=== PATIENT | male | born 1940 | race Caucasian/White ===

== ENCOUNTER 2021-11-24 00:41 | Emergency (ER) | payer MEDICARE, OTHER ==
[~2021-11-24] VITALS: Ht 162.6 cm; Wt 67.0 kg
[~2021-11-24 00:41] MED LIST: FLO0.4C PO
[2021-11-24] MEDS ORDERED: HYDR-3972 PO (03:00)
[2021-11-24] MEDS: HYDROcodone/acetaminophen 10/325mg tab PO ONE (03:30)
[2021-11-24 03:40] VITALS: BP 160/86
== END 2021-11-24 03:41 | disposition home or self-care (01) ==
LOC: ER 00:42
DX: S22.32XA Fracture of one rib, left side, initial encounter for closed fracture (principal); R07.81 Pleurodynia; R05.9 Cough, unspecified; Z98.890 Other specified postprocedural states; Z79.899 Other long term (current) drug therapy; X58.XXXA Exposure to other specified factors, initial encounter; Y93.89 Activity, other specified; Y92.89 Other specified places as the place of occurrence of the external cause; Y99.8 Other external cause status
CPT/HCPCS: 99283

== ENCOUNTER 2023-02-22 17:32 | Emergency (ER) | payer MEDICARE, OTHER ==
[~2023-02-22] VITALS: Ht 162.6 cm; Wt 67.3 kg
[2023-02-22 17:35] VITALS: TEMP 98.6
[2023-02-22 20:01] VITALS: BP 204/94; PULSE 77; RESP 12; O2SAT 98
[2023-02-22] MEDS ORDERED: HYDROcodone/acetaminophen 5mg/325mg tablet PO ONE (21:45)
[2023-02-22] MEDS ORDERED: HYDR-3965 PO (22:52)
== END 2023-02-22 23:24 | disposition home or self-care (01) ==
LOC: ER 17:33
DX: S62.300A Unspecified fracture of second metacarpal bone, right hand, initial encounter for closed fracture (principal); S30.0XXA Contusion of lower back and pelvis, initial encounter; Z79.899 Other long term (current) drug therapy; W19.XXXA Unspecified fall, initial encounter; Y93.89 Activity, other specified; Y92.89 Other specified places as the place of occurrence of the external cause; Y99.8 Other external cause status
CPT/HCPCS: 29125; 72220; 73130; 99284

== ENCOUNTER 2024-05-30 03:20 | Emergency (ER) | payer MEDICARE, OTHER ==
[~2024-05-30] VITALS: Ht 167.6 cm; Wt 63.6 kg
[2024-05-30 03:26] VITALS: TEMP 98.4
[2024-05-30] MEDS: ketorolac trometh 30MG/ML vial 30 MG/ML VIAL IM ONE (06:00)
[2024-05-30 06:52] VITALS: BP 155/61; PULSE 85; RESP 16; O2SAT 96
== END 2024-05-30 07:03 | disposition home or self-care (01) ==
LOC: ER 03:20
DX: M62.830 Muscle spasm of back (principal); M19.90 Unspecified osteoarthritis, unspecified site; Z98.890 Other specified postprocedural states
CPT/HCPCS: 72131; 96372; 99285; J1885

== ENCOUNTER 2024-05-30 16:39 | Inpatient (IN) | payer MEDICARE, OTHER ==
[~2024-05-30] VITALS: Ht 165.1 cm; Wt 62.7 kg
[2024-05-30 17:51] LABS: BASOPHILS % (AUTO) 0.3 % (0-1); EOSINOPHILS # (AUTO) 0.1 X10'3 (0-0.9); EOSINOPHILS % (AUTO) 0.6 % (0-6); HEMATOCRIT 43.3 % (42.0-52.0); HEMOGLOBIN 14.7 g/dl (14.0-17.9); LYMPHOCYTES % (AUTO) 15.8 % (21-51); MEAN CORPUSCULAR HGB CONC 33.9 g/dL (33.0-36.5); MEAN CORPUSCULAR VOLUME 88.7 FL (78-98); MEAN PLATELET VOLUME 8.9 FL (7.4-10.4); MONOCYTES # (AUTO) 1.5 X10'3 (0-0.9); MONOCYTES % (AUTO) 12.1 % (2-12); NEUTROPHILS # (AUTO) 8.9 X10'3 (1.8-7.7); NEUTROPHILS % (AUTO) 71.2 % (42-75); PLATELET COUNT 223 X10'3 (140-440); RED BLOOD COUNT 4.89 X10'6 (4.70-6.10); RED CELL DISTRIBUTION WIDTH 14.7 % (11.5-14.5); WHITE BLOOD COUNT 12.5 X10'3 (4.5-11.0)
[2024-05-30 17:52] LABS: ALANINE AMINOTRANSFERASE 15 U/L (12-78); ALBUMIN 3.1 G/DL (3.4-5.0); ALBUMIN/GLOBULIN RATIO 0.8 (1.1-1.5); ALKALINE PHOSPHATASE 58 IU/L (46-116); ANION GAP 10 (8-16); ASPARTATE AMINO TRANSFERASE 11 U/L (10-37); BILIRUBIN,TOTAL 0.9 MG/DL (0.1-1.0); BLOOD UREA NITROGEN 16 MG/DL (7-18); BUN/CREATININE RATIO 14.7 (10.0-20.0); CALCIUM 8.8 MG/DL (8.5-10.1); CHLORIDE 104 MMOL/L (99-107); CREATININE 1.09 MG/DL (0.60-1.10); GLUCOSE 109 MG/DL (70-104); POTASSIUM 3.4 MMOL/L (3.5-5.1); SODIUM 141 MMOL/L (135-145); TOTAL CARBON DIOXIDE 26.6 MMOL/L (24-32); TOTAL PROTEIN 6.8 G/DL (6.4-8.2); eCRCL 44 ML/MIN; eGFR 64 ML/MIN
[2024-05-30 18:00] LABS: LIPASE 17 U/L (16-77); PRO BRAIN NATRIURETIC PEPTIDE 1403 PG/ML (0-450)
[2024-05-30] MEDS: acetaminophen 1,000mg/100ml IV 100 ML IV ONE (18:00)
[2024-05-30 18:03] LABS: BILIRUBIN,URINE NEGATIVE (Neg); CLARITY,URINE SLIGHTLY CLOUDY (Clear); COLOR,URINE YELLOW (Yellow); GLUCOSE, URINE NEGATIVE (Neg); KETONES,URINE TRACE mg/dl (Neg); LEUKOCYTE ESTERASE ,URINE SMALL (Neg); NITRITES, URINE POSITIVE (Neg); OCCULT BLOOD,URINE SMALL (Neg); PH,URINE 6.5 (4.8-8.0); PROTEIN,URINE 30 mg/dl (Neg); UROBILINOGEN,URINE 0.2 E.U/dL (0.2-1.0)
[2024-05-30 18:11] LABS: MAGNESIUM 1.9 MG/DL (1.5-2.4)
[2024-05-30 18:11] LABS: UA COLLECTION TYPE VOIDED
[2024-05-30 18:13] LABS: BACTERIA,URINE 3+ /HPF (Neg); MUCUS STRANDS FEW /LPF (Neg); SQUAMOUS EPITHELIAL CELL,UR FEW /LPF (FEW); WBC,URINE TNTC /HPF (0-4)
[2024-05-30] MEDS: fentaNYL/PF 50MCG/1 ML 2ML syringe IV ONE (19:51)
[2024-05-30] MEDS: normal saline 1000ML IV soln IV ONE (19:53)
[2024-05-30] MEDS ORDERED: potassium Cl 20 mEq SR tablet PO PRN (20:20)
[2024-05-30] MEDS ORDERED: ondansetron/PF 4mg/2ml inj IV PRN (20:20)
[2024-05-30] MEDS ORDERED: HYDROmorphone/PF 0.2 MG/ML SYRINGE IV PRN (20:20)
[2024-05-30] MEDS ORDERED: potassium Cl 40MEQ/1/2NS 520ml 520 ML IV PRN (20:20)
[2024-05-30] MEDS ORDERED: magnesium sulf-water 2g/50mL 50 ML IV PRN (20:20)
[2024-05-30] MEDS ORDERED: mag hydrox/Alum hydrox/simeth 30ml oral suspension PO PRN (20:20)
[2024-05-30] MEDS ORDERED: magnesium sulf-water 4G/100mL 100 ML IV PRN (20:20)
[2024-05-30] MEDS ORDERED: magnesium Cl slow-release 64mg tablet PO PRN (20:20)
[2024-05-30] MEDS ORDERED: magnesium hydroxide 30ml (MOM) UD suspension PO PRN (20:20)
[2024-05-30] MEDS: CefTRIAXone 2gm/D5W 50ml BAG 50 ML IV ONE (20:41)
[2024-05-30] MEDS: normal saline 1000ml 1,000 ML IV SCH (20:41)
[2024-05-30] MEDS: tamsulosin 0.4mg capsule PO SCH (22:01)
[2024-05-31] VITALS (22 sets, daily range): BP systolic 124–199; BP diastolic 48–83; PULSE 67–90; RESP 10–33; TEMP 97.1–98.3; O2SAT 92–99
[2024-05-31] MEDS: acetaminophen 325mg tablet PO PRN (04:37)
[2024-05-31] MEDS: morphine 2 MG/ML inj. syringe IV PRN ×2 (05:04→11:23)
[2024-05-31 06:35] LABS: BASOPHILS # (AUTO) 0.1 X10'3 (0-0.2); BASOPHILS % (AUTO) 0.5 % (0-1); EOSINOPHILS # (AUTO) 0.1 X10'3 (0-0.9); EOSINOPHILS % (AUTO) 0.9 % (0-6); LYMPHOCYTES # (AUTO) 1.5 X10'3 (1.1-4.8); LYMPHOCYTES % (AUTO) 14.3 % (21-51); MEAN CORPUSCULAR HEMOGLOBIN 30.5 PG (27.0-31.0); MEAN CORPUSCULAR HGB CONC 34.3 g/dL (33.0-36.5); MEAN CORPUSCULAR VOLUME 88.8 FL (78-98); MEAN PLATELET VOLUME 9.1 FL (7.4-10.4); MONOCYTES # (AUTO) 1.1 X10'3 (0-0.9); MONOCYTES % (AUTO) 10.9 % (2-12); NEUTROPHILS # (AUTO) 7.5 X10'3 (1.8-7.7); NEUTROPHILS % (AUTO) 73.4 % (42-75); PLATELET COUNT 194 X10'3 (140-440); RED BLOOD COUNT 4.28 X10'6 (4.70-6.10); RED CELL DISTRIBUTION WIDTH 14.3 % (11.5-14.5); WHITE BLOOD COUNT 10.2 X10'3 (4.5-11.0)
[2024-05-31 06:47] LABS: APTT 29 SECONDS (22-32); INR 1.1 INR; PROTHROMBIN TIME 11.5 SECONDS (9.0-12.0)
[2024-05-31 06:58] LABS: ALANINE AMINOTRANSFERASE 13 U/L (12-78); ALBUMIN 2.4 G/DL (3.4-5.0); ALBUMIN/GLOBULIN RATIO 0.8 (1.1-1.5); ALKALINE PHOSPHATASE 46 IU/L (46-116); ANION GAP 10 (8-16); ASPARTATE AMINO TRANSFERASE 5 U/L (10-37); BILIRUBIN,TOTAL 0.7 MG/DL (0.1-1.0); BLOOD UREA NITROGEN 14 MG/DL (7-18); BUN/CREATININE RATIO 17.1 (10.0-20.0); CHLORIDE 106 MMOL/L (99-107); CREATININE 0.82 MG/DL (0.60-1.10); GLUCOSE 91 MG/DL (70-104); MAGNESIUM 1.8 MG/DL (1.5-2.4); PHOSPHORUS 3.1 MG/DL (2.3-4.5); SODIUM 140 MMOL/L (135-145); TOTAL CARBON DIOXIDE 23.7 MMOL/L (24-32); TOTAL PROTEIN 5.5 G/DL (6.4-8.2); eCRCL 58 ML/MIN; eGFR 90 ML/MIN
[2024-05-31] MEDS: docusate sod 100mg capsule PO SCH (08:00)
[2024-05-31] MEDS: K and/or MAG REPLACEMENT MC SCH (08:00)
[2024-05-31] MEDS: potassium Cl 20 mEq SR tablet PO PRN (09:09)
[2024-05-31] MEDS: CefTRIAXone 2gm/D5W 50ml BAG 50 ML IV SCH (09:09)
[2024-05-31] MEDS: pantoprazole 40mg Tablet.DR PO SCH (09:10)
[2024-05-31] MEDS ORDERED: labetalol 20mg/4ml (5mg/ml) syringe IV PRN (11:35)
[2024-05-31] MEDS ORDERED: fentaNYL/PF 50MCG/1 ML 2ML syringe IV PRN ×2 (11:35)
[2024-05-31] MEDS ORDERED: morphine 4 MG/ML inj SYRINge IV PRN (11:35)
[2024-05-31] MEDS ORDERED: morphine 2 MG/ML inj. syringe IV PRN (11:35)
[2024-05-31 14:57] LABS: ISTAT CREATININE 0.9 mg/dL (0.8-1.3); ISTAT HGB 15.6 g/dl (14.0-17.9); ISTAT IONIZED CALCIUM 1.14 mmol/L (1.03-1.32); ISTAT K 3.6 mmol/L (3.5-5.1); POC BUN/CREATININE RATIO 13.3 (5.4-32.0)
[2024-05-31] MEDS: ringers solution, lacted 1,000 ML IV SCH (15:25)
[2024-05-31] MEDS: hydrALAZINE 20mg/ml inj. IV ONE (15:44)
[2024-05-31] MEDS ORDERED: iohexol 300 MG/1 ML 50ml polymer ONE (16:34)
[2024-05-31] MEDS ORDERED: sevoflurane 250ml liquid IH ONE (17:26)
[2024-05-31] MEDS ORDERED: propofol inj 20 ML IV ONE (17:28)
[2024-05-31] MEDS ORDERED: fentaNYL/PF 50MCG/1 ML 2ML syringe ONE (17:31)
[2024-05-31] MEDS ORDERED: ceFAZolin 1000mg inj ONE ×2 (17:53)
[2024-05-31] MEDS: hydrALAZINE 20mg/ml inj. IV PRN (18:39)
[2024-05-31] MEDS: ondansetron/PF 4mg/2ml inj IV PRN (19:30)
[2024-05-31] MEDS: enoxaparin 40mg/0.4ml syringe SQ SCH (19:59)
[2024-05-31] MEDS: HYDROmorphone inj. 0.5 MG/0.5 ML DISP.SYRIN IV PRN (20:58)
[2024-06-01] VITALS (7 sets, daily range): BP systolic 128–162; BP diastolic 62–80; PULSE 68–89; RESP 13–18; TEMP 97.4–98.1; O2SAT 94–98
[2024-06-01 08:15] LABS: BASOPHILS # (AUTO) 0.1 X10'3 (0-0.2); BASOPHILS % (AUTO) 0.5 % (0-1); EOSINOPHILS % (AUTO) 0.4 % (0-6); HEMATOCRIT 39.6 % (42.0-52.0); HEMOGLOBIN 13.5 g/dl (14.0-17.9); LYMPHOCYTES # (AUTO) 1.6 X10'3 (1.1-4.8); LYMPHOCYTES % (AUTO) 14.8 % (21-51); MEAN CORPUSCULAR HEMOGLOBIN 30.2 PG (27.0-31.0); MEAN CORPUSCULAR HGB CONC 34.1 g/dL (33.0-36.5); MEAN CORPUSCULAR VOLUME 88.7 FL (78-98); MEAN PLATELET VOLUME 8.7 FL (7.4-10.4); MONOCYTES % (AUTO) 9.5 % (2-12); NEUTROPHILS % (AUTO) 74.8 % (42-75); PLATELET COUNT 227 X10'3 (140-440); RED BLOOD COUNT 4.46 X10'6 (4.70-6.10); RED CELL DISTRIBUTION WIDTH 14.3 % (11.5-14.5); WHITE BLOOD COUNT 10.7 X10'3 (4.5-11.0)
[2024-06-01 08:24] LABS: APTT 29 SECONDS (22-32); INR 1.1 INR; PROTHROMBIN TIME 11.4 SECONDS (9.0-12.0)
[2024-06-01 09:10] LABS: ALANINE AMINOTRANSFERASE 7 U/L (12-78); ALBUMIN 2.4 G/DL (3.4-5.0); ALBUMIN/GLOBULIN RATIO 0.7 (1.1-1.5); ALKALINE PHOSPHATASE 41 IU/L (46-116); ANION GAP 10 (8-16); ASPARTATE AMINO TRANSFERASE 8 U/L (10-37); BILIRUBIN,TOTAL 0.7 MG/DL (0.1-1.0); BLOOD UREA NITROGEN 17 MG/DL (7-18); BUN/CREATININE RATIO 17.2 (10.0-20.0); CALCIUM 7.8 MG/DL (8.5-10.1); CHLORIDE 108 MMOL/L (99-107); CREATININE 0.99 MG/DL (0.60-1.10); GLUCOSE 99 MG/DL (70-104); MAGNESIUM 1.8 MG/DL (1.5-2.4); PHOSPHORUS 4.1 MG/DL (2.3-4.5); POTASSIUM 3.7 MMOL/L (3.5-5.1); SODIUM 142 MMOL/L (135-145); TOTAL CARBON DIOXIDE 24.5 MMOL/L (24-32); TOTAL PROTEIN 5.7 G/DL (6.4-8.2); eCRCL 48 ML/MIN; eGFR 72 ML/MIN
[2024-06-01] MEDS ORDERED: HYDROcodone/acetaminophen 5mg/325mg tablet PO PRN (12:50)
[2024-06-01] MEDS: HYDROcodone/acetaminophen 10/325mg tab PO PRN (15:17)
[2024-06-02 06:00] VITALS: BP 127/52; PULSE 60; RESP 13; TEMP 98.4; O2SAT 93
[2024-06-02 07:25] LABS: BASOPHILS # (AUTO) 0.1 X10'3 (0-0.2); BASOPHILS % (AUTO) 0.6 % (0-1); EOSINOPHILS # (AUTO) 0.2 X10'3 (0-0.9); EOSINOPHILS % (AUTO) 1.9 % (0-6); HEMATOCRIT 40.6 % (42.0-52.0); HEMOGLOBIN 13.9 g/dl (14.0-17.9); LYMPHOCYTES # (AUTO) 1.7 X10'3 (1.1-4.8); LYMPHOCYTES % (AUTO) 17.9 % (21-51); MEAN CORPUSCULAR HEMOGLOBIN 30.2 PG (27.0-31.0); MEAN CORPUSCULAR HGB CONC 34.4 g/dL (33.0-36.5); MEAN CORPUSCULAR VOLUME 87.9 FL (78-98); MEAN PLATELET VOLUME 8.9 FL (7.4-10.4); MONOCYTES % (AUTO) 10.6 % (2-12); NEUTROPHILS # (AUTO) 6.7 X10'3 (1.8-7.7); PLATELET COUNT 255 X10'3 (140-440); RED BLOOD COUNT 4.62 X10'6 (4.70-6.10); RED CELL DISTRIBUTION WIDTH 14.5 % (11.5-14.5); WHITE BLOOD COUNT 9.6 X10'3 (4.5-11.0)
[2024-06-02 08:00] VITALS: RESP 16; O2SAT 95
[2024-06-02 08:09] LABS: ALANINE AMINOTRANSFERASE 10 U/L (12-78); ALBUMIN 2.1 G/DL (3.4-5.0); ALBUMIN/GLOBULIN RATIO 0.6 (1.1-1.5); ALKALINE PHOSPHATASE 40 IU/L (46-116); ANION GAP 7 (8-16); ASPARTATE AMINO TRANSFERASE 12 U/L (10-37); BILIRUBIN,TOTAL 0.4 MG/DL (0.1-1.0); BLOOD UREA NITROGEN 17 MG/DL (7-18); CALCIUM 7.8 MG/DL (8.5-10.1); CHLORIDE 108 MMOL/L (99-107); CREATININE 0.85 MG/DL (0.60-1.10); GLUCOSE 106 MG/DL (70-104); MAGNESIUM 1.8 MG/DL (1.5-2.4); PHOSPHORUS 2.1 MG/DL (2.3-4.5); POTASSIUM 3.5 MMOL/L (3.5-5.1); SODIUM 140 MMOL/L (135-145); TOTAL CARBON DIOXIDE 25.2 MMOL/L (24-32); TOTAL PROTEIN 5.4 G/DL (6.4-8.2); eCRCL 56 ML/MIN; eGFR 86 ML/MIN
[2024-06-02 08:37] LABS: APTT 29 SECONDS (22-32); INR 1.1 INR; PROTHROMBIN TIME 11.2 SECONDS (9.0-12.0)
[2024-06-02 10:00] VITALS: BP 114/64; PULSE 90; RESP 20; TEMP 98.2; O2SAT 95
[2024-06-02] MEDS ORDERED: CEFD300C3 PO (13:46)
[2024-06-02] MEDS ORDERED: LACT1CAP26 PO (13:46)
[2024-06-02] MEDS ORDERED: HYDR-3965 PO (13:56)
[2024-06-02 14:58] VITALS: RESP 16
== END 2024-06-02 17:15 | disposition home or self-care (01) | DRG 660 ==
LOC: ER 16:39 → ORTHO 4S 20:21
PROVIDERS: ADMIT Internal Medicine Critical Care Medicine; ATTEND Internal Medicine
PROC: BT1F1ZZ Fluoroscopy of Left Kidney, Ureter and Bladder using Low Osmolar Contrast (ICD-10-PCS; 2024-05-31)
PROC: 0T778DZ Dilation of Left Ureter with Intraluminal Device, Via Natural or Artificial Opening Endoscopic (ICD-10-PCS; principal; 2024-05-31 17:26)
DX: N13.6 Pyonephrosis (principal); E44.0 Moderate protein-calorie malnutrition; N40.0 Benign prostatic hyperplasia without lower urinary tract symptoms; E87.6 Hypokalemia; Z68.23 Body mass index [BMI] 23.0-23.9, adult
CPT/HCPCS: 36415; 71045; 72131; 74019; 74150; 80047; 80053; 81001; 82948; 83605; 83690; 83735; 83880; 84100; 84145; 84484; 85025; 85610; 85730; 87040; 87081; 87088; 93005; 96365; 96372; 96375; 97116; 97162; 99285; A4618; C2617; G0378; J0131; J0360; J0690; J0696; J1171; J1650; J1885; J2270; J2405; J2704; J3010; J7030; J7120; Q9967